=== PATIENT | male | born 1960 | race Two or more races ===

== ENCOUNTER 2016-11-08 20:18 | Inpatient (IN) | payer MEDICAID ==
[~2016-11-08] VITALS: Ht 170.2 cm; Wt 86.7 kg
[2016-11-08 21:03] LABS: Basophils # (auto) 0 uL; Basophils % (auto) 0.5 % (0.0-2.0); CONDITION AutoValidated; Eosinophils # (auto) 0.1 uL; Eosinophils % (auto) 1.7 % (0.0-7.0); Hematocrit 43.8 % (41.0-53.0); Hemoglobin 15.1 g/dL (13.5-17.5); Lymphocytes # (auto) 1.9 uL; Lymphocytes % (auto) 22.9 % (10.0-50.0); Mean Corpuscular Hgb Conc. 34.4 g/dL (32.0-36.0); Mean Platelet Volume 8.2 fL (7.4-10.4); Monocytes # (auto) 0.8 uL; Monocytes % (auto) 9.3 % (0.0-12.0); Neutrophils # (auto) 5.6 uL; Neutrophils % (auto) 65.6 % (37.0-80.0); Platelet Count (auto) 240 10^3/uL (140-450); White Blood Cell 8.5 10^3/uL (4.4-10.8)
[2016-11-08] MEDS ORDERED: ONDANSETRON HCL 4 MG/2 ML VIAL IV ONE (21:15)
[2016-11-08] MEDS ORDERED: ASPirin 81 mg TAB PO ONE (21:15)
[2016-11-08] MEDS ORDERED: MORPHINE SULFATE 4 MG/ML SYRG IV ONE (21:15)
[2016-11-08] MEDS ORDERED: SODIUM CHLORIDE 0.9% 500 ML IV ONE (21:15)
[2016-11-08 21:18] LABS: INR 1.01 (0.9-1.15); Partial Thromboplastin Time 26.7 sec (22.64-33.71)
[2016-11-08 21:27] LABS: Albumin 3.7 g/dL (3.4-5.0); BUN/Creatinine Ratio 15.6; Bilirubin, Total 0.5 mg/dL (0.2-1.0); Calcium 8.6 mg/dL (8.5-10.1); Magnesium 2.1 mg/dL (1.6-2.6); Potassium 3.8 mmol/L (3.5-5.1); Total Protein 6.9 g/dL (6.4-8.2)
[2016-11-08 21:30] LABS: B-Type Natriuretic Peptide 24.59 pg/mL (0-100); Temperature: 23.1 C (20.0-25.0)
[2016-11-08] MEDS ORDERED: ENOXAPARIN SOD 40 MG/0.4 ML SYRINGE SC ONE (23:45)
[2016-11-08] MEDS ORDERED: ONDANSETRON HCL 4 MG/2 ML VIAL IV PRN (23:45)
[2016-11-08] MEDS ORDERED: MORPHINE SULF INJ 2 MG/ML SYRINGE 1ML IV PRN ×2 (23:45)
[2016-11-08] MEDS ORDERED: ATORVASTATIN 20 MG TAB PO ONE (23:45)
[2016-11-08] MEDS ORDERED: ACETAMINOPHEN 325 MG TAB PO PRN (23:45)
[2016-11-08] MEDS ORDERED: NITROGLYCERIN 0.4 MG SL TAB SL PRN (23:45)
[2016-11-09] VITALS (7 sets, daily range): BP systolic 105–120; BP diastolic 70–85
[2016-11-09 00:11] LABS: Cholesterol 166 mg/dL (< 200); HDL Cholesterol 49 mg/dL (40-59); LDL Cholesterol 109 mg/dL (< 100); Triglycerides 139 mg/dL (< 150)
[2016-11-09 02:24] LABS: Basophils # (auto) 0 uL; Basophils % (auto) 0.6 % (0.0-2.0); CONDITION AutoValidated; Eosinophils # (auto) 0.3 uL; Eosinophils % (auto) 3.3 % (0.0-7.0); Hematocrit 42.8 % (41.0-53.0); Hemoglobin 14.4 g/dL (13.5-17.5); Lymphocytes # (auto) 2.4 uL; Lymphocytes % (auto) 29.1 % (10.0-50.0); Mean Corpuscular Hemoglobin 33.8 pg (28.0-32.0); Mean Corpuscular Hgb Conc. 33.8 g/dL (32.0-36.0); Mean Corpuscular Volume 100.2 fL (80.0-100.0); Mean Platelet Volume 8.4 fL (7.4-10.4); Monocytes # (auto) 0.7 uL; Neutrophils # (auto) 4.7 uL; Platelet Count (auto) 220 10^3/uL (140-450); White Blood Cell 8.2 10^3/uL (4.4-10.8)
[2016-11-09 02:38] LABS: Albumin 3.3 g/dL (3.4-5.0); Calcium 7.9 mg/dL (8.5-10.1); Potassium 3.8 mmol/L (3.5-5.1)
[2016-11-09 02:42] LABS: Bilirubin, Total 0.5 mg/dL (0.2-1.0); Total Protein 6.6 g/dL (6.4-8.2)
[2016-11-09] MEDS ORDERED: ASPirin 81 mg TAB PO SCH (10:00)
[2016-11-09] MEDS: ENOXAPARIN SOD 40 MG/0.4 ML SYRINGE SC SCH (10:11)
[2016-11-09 11:11] LABS: Urine Bilirubin Negative (Negative); Urine Blood Negative /uL (Negative); Urine Color Yellow (Yellow); Urine Glucose Normal (Normal); Urine Hyaline Cast FEW /lpf (0 - 2); Urine Ketone Negative (Negative); Urine Mucus FEW (None Seen); Urine Nitrite Negative (Negative); Urine RBC <1 /hpf (0 - 3); Urine Squamous Epithelial Cell FEW /hpf (<5); Urine Urobilinogen Normal (Negative); Urine pH 5.5 (5.0-8.0)
[2016-11-09] MEDS ORDERED: FOLI1TAB6 PO (12:05)
[2016-11-09] MEDS ORDERED: ALBUAER3 BC (12:05)
[2016-11-09] MEDS: ATORVASTATIN 20 MG TAB PO SCH (21:53)
[2016-11-09] MEDS: HYDROcodone-ACET 5/325MG TAB PO PRN (22:01)
[2016-11-10] VITALS (7 sets, daily range): BP systolic 109–121; BP diastolic 70–86
[2016-11-10] MEDS: ASPirin 81 mg TAB PO SCH (09:53)
[2016-11-10] MEDS: ENOXAPARIN SOD 40 MG/0.4 ML SYRINGE SC SCH (09:54)
[2016-11-10] MEDS: ATORVASTATIN 20 MG TAB PO SCH (21:42)
[2016-11-10] MEDS: HYDROcodone-ACET 5/325MG TAB PO PRN (21:59)
[2016-11-11 05:47] VITALS: BP 109/77
[2016-11-11 09:30] VITALS: BP 127/89
[2016-11-11] MEDS: ASPirin 81 mg TAB PO SCH (10:00)
[2016-11-11] MEDS: ENOXAPARIN SOD 40 MG/0.4 ML SYRINGE SC SCH (10:00)
[2016-11-11] MEDS ORDERED: ATOR20TA50 PO (13:47)
[2016-11-11] MEDS ORDERED: ASPI81CH43 PO (13:47)
[2016-11-11 17:13] VITALS: BP 113/80
== END 2016-11-11 18:30 | disposition home or self-care (01) | DRG 198 ==
LOC: EDBD 20:20 → ER 20:20 → TELE-CENTR 20:21
PROVIDERS: ADMIT Nurse Practitioner; ATTEND Internal Medicine
DX: I25.119 Atherosclerotic heart disease of native coronary artery with unspecified angina pectoris (principal); I24.9 Acute ischemic heart disease, unspecified; I10 Essential (primary) hypertension; E78.5 Hyperlipidemia, unspecified; E03.9 Hypothyroidism, unspecified; Z82.1 Family history of blindness and visual loss; Z82.49 Family history of ischemic heart disease and other diseases of the circulatory system; Z83.3 Family history of diabetes mellitus; Z91.19 Patient's noncompliance with other medical treatment and regimen; I25.2 Old myocardial infarction; Z88.2 Allergy status to sulfonamides; Z71.9 Counseling, unspecified
CPT/HCPCS: 36415; 71010; 78452; 80053; 80061; 81001; 83735; 83880; 84443; 84484; 85025; 85379; 85610; 85730; 93005; 93017; 93306; 96361; 96372; 96374; 96375; J2405

== ENCOUNTER 2016-12-18 16:48 | Emergency (ER) | payer MEDICAID ==
[~2016-12-18] VITALS: Ht 172.7 cm; Wt 89.1 kg
[~2016-12-18 16:48] MED LIST: ASPI81CH43 PO; ATOR20TA50 PO
[2016-12-18 17:02] VITALS: BP 146/92
== END 2016-12-18 17:51 | disposition home or self-care (01) ==
LOC: ER 16:50
DX: R42 Dizziness and giddiness (principal); Z87.891 Personal history of nicotine dependence; I10 Essential (primary) hypertension; E78.5 Hyperlipidemia, unspecified; I25.2 Old myocardial infarction; Z79.82 Long term (current) use of aspirin; Z88.2 Allergy status to sulfonamides

== ENCOUNTER 2017-05-21 08:57 | Emergency (ER) | payer MEDICAID ==
[~2017-05-21] VITALS: Ht 172.7 cm; Wt 87.1 kg
[2017-05-21 13:45] VITALS: BP 119/89
== END 2017-05-21 14:35 | disposition home or self-care (01) ==
LOC: ER 08:57
DX: J40 Bronchitis, not specified as acute or chronic (principal); I10 Essential (primary) hypertension; E78.5 Hyperlipidemia, unspecified; I25.2 Old myocardial infarction; Z87.891 Personal history of nicotine dependence
CPT/HCPCS: 71020

== ENCOUNTER 2018-10-24 16:43 | Emergency (ER) | payer MEDICAID ==
[~2018-10-24] VITALS: Ht 172.7 cm; Wt 86.6 kg
[2018-10-24 17:56] LABS: Basophils # (auto) 0.1 uL; Eosinophils # (auto) 0.2 uL; Eosinophils % (auto) 3.9 % (0.0-7.0); Hematocrit 48.1 % (41.0-53.0); Hemoglobin 16.3 g/dL (13.5-17.5); Lymphocytes # (auto) 1.6 uL; Lymphocytes % (auto) 28.3 % (10.0-50.0); Mean Corpuscular Hemoglobin 33.6 pg (28.0-32.0); Mean Corpuscular Hgb Conc. 33.9 g/dL (32.0-36.0); Mean Corpuscular Volume 99.1 fL (80.0-100.0); Monocytes # (auto) 0.3 uL; Neutrophils # (auto) 3.4 uL; Neutrophils % (auto) 60.8 % (37.0-80.0); Platelet Count (auto) 208 10^3/uL (140-450); Red Blood Cells 4.86 10^6/uL (4.5-5.90); Red Cell Distribution Width 13.7 % (11.8-14.3); White Blood Cell 5.5 10^3/uL (4.4-10.8)
[2018-10-24 18:26] LABS: Albumin 3.9 g/dL (3.4-5.0); Calcium 8.6 mg/dL (8.5-10.1); Potassium 3.7 mmol/L (3.5-5.1)
[2018-10-24 18:29] LABS: BUN/Creatinine Ratio 18.9
[2018-10-24 18:35] LABS: Bilirubin, Total 0.4 mg/dL (0.2-1.0); Total Protein 7.5 g/dL (6.4-8.2)
[2018-10-24 23:33] LABS: Urine Bacteria NONE SEEN /hpf (None Seen); Urine Blood Negative /uL (Negative); Urine Specific Gravity 1.026 (1.001-1.035); Urine WBC <1 /hpf (0 - 3)
[2018-10-25 01:40] VITALS: BP 120/83
== END 2018-10-25 03:02 | disposition home or self-care (01) ==
LOC: ER 16:47
DX: R42 Dizziness and giddiness (principal); I25.10 Atherosclerotic heart disease of native coronary artery without angina pectoris; E78.5 Hyperlipidemia, unspecified; I10 Essential (primary) hypertension; R51 Headache; F41.9 Anxiety disorder, unspecified; I25.2 Old myocardial infarction; Z87.891 Personal history of nicotine dependence
CPT/HCPCS: 36415; 71046; 80053; 81001; 83880; 84484; 85025; 85379; 93005; 94761